=== PATIENT | male | born 1970 | race Caucasian/White ===

== ENCOUNTER 2019-07-27 06:47 | Emergency (ER) | payer SELFPAY ==
[~2019-07-27] VITALS: Ht 167.6 cm; Wt 68.0 kg
[2019-07-27 07:39] VITALS: BP 142/84
[2019-07-27] MEDS ORDERED: TETANUS-DIPTH-ACEL PERTUSSIS 0.5ML SYRG IM ONE (08:00)
== END 2019-07-27 08:05 | disposition home or self-care (01) ==
LOC: ER 06:47
DX: S71.151A Open bite, right thigh, initial encounter (principal); W54.0XXA Bitten by dog, initial encounter; Y93.89 Activity, other specified; Y92.89 Other specified places as the place of occurrence of the external cause; Y99.8 Other external cause status
CPT/HCPCS: 90471; 90715